=== PATIENT | male | born 1975 | race Caucasian/White ===

== ENCOUNTER 2020-03-23 15:29 | Emergency (ER) | payer SELFPAY ==
[~2020-03-23] VITALS: Ht 177.8 cm; Wt 94.3 kg
[2020-03-23 15:30] VITALS: Ht 177.8 cm; Wt 94.3 kg
[2020-03-23 17:38] VITALS: BP 138/83
== END 2020-03-23 17:38 | disposition home or self-care (01) ==
LOC: ED 15:29
DX: J18.9 Pneumonia, unspecified organism (principal); Z20.828 Contact with and (suspected) exposure to other viral communicable diseases
CPT/HCPCS: 87804; Q0092

== ENCOUNTER 2020-04-08 11:11 | Emergency (ER) | payer SELFPAY ==
[~2020-04-08] VITALS: Ht 175.3 cm; Wt 79.4 kg
[2020-04-08 11:26] VITALS: Ht 175.3 cm; Wt 79.4 kg
[2020-04-08 12:55] VITALS: BP 148/89
== END 2020-04-08 12:55 | disposition home or self-care (01) ==
LOC: ED 11:11
DX: U07.1 COVID-19 (principal); R07.89 Other chest pain